=== PATIENT | male | born 1940 | race Caucasian/White ===

== ENCOUNTER 2016-08-14 05:26 | Day surgery (SDC) | payer MEDICARE, OTHER ==
[~2016-08-14 05:26] MED LIST: ALEVE220 M4 PO; ATENOLOL50 M1 PO; COMPETE1 EACH PO; COZAAR25 M1 PO; HYDROCHLOROTHIA25 M1 PO; PRILOSEC OTC20 M1 PO; PROBIOTIC1 EAC6 PO; TYLENOL325 M2 PO; VITAMIN D32000 UNI2 PO; ZOCOR20 M1 PO
[2016-08-15] MEDS ORDERED: ULTRAM50 M1 (08:55)
== END 2016-08-15 09:48 ==
LOC: SHSB 05:26 → ORE 07:34 → PACU 10:58 → 5EB 12:00
PROC: 00NY0ZZ Release Lumbar Spinal Cord, Open Approach (ICD-10-PCS; principal; 2016-08-14)
PROC: 00BY0ZZ Excision of Lumbar Spinal Cord, Open Approach (ICD-10-PCS; 2016-08-14)
DX: M48.07 Spinal stenosis, lumbosacral region (principal); M54.16 Radiculopathy, lumbar region; M71.38 Other bursal cyst, other site; I10 Essential (primary) hypertension; M19.90 Unspecified osteoarthritis, unspecified site; R20.9 Unspecified disturbances of skin sensation; K21.9 Gastro-esophageal reflux disease without esophagitis; Z79.1 Long term (current) use of non-steroidal anti-inflammatories (NSAID); Z79.899 Other long term (current) drug therapy; Z98.890 Other specified postprocedural states
CPT/HCPCS: G8978-GP-CI; G8978-GP-CL; G8979-GP-CI; G8979-GP-CL; G8980-GP-CI; J0690; J2405; J2765